=== PATIENT | male | born 1965 | race Hispanic/Latino ===

== ENCOUNTER → 2017-05-21 | Outpatient (CLI) | payer BC | END | disposition home or self-care (01) | LOC: RAH 12:32 | PROVIDERS: ATTEND Nurse Practitioner Family | DX: M89.9 Disorder of bone, unspecified (principal) | CPT/HCPCS: 78306; A9503 ==

== ENCOUNTER 2017-10-13 10:25 | Emergency (ER) | payer BC ==
[2017-10-13] MEDS ORDERED: METOCLOPRAMIDE 10 MG/2 ML VIAL ONE ×2 (11:25→11:48)
[2017-10-13] MEDS ORDERED: DiphenhydrAMINE HCL 50 MG/ML VIAL ONE (11:25)
[2017-10-13] MEDS ORDERED: METHYLPREDNISOLONE SOD SUCC 125MG/2ML VIAL ONE (11:26)
[2017-10-13] MEDS ORDERED: ONDANSETRON HCL 4 MG/2 ML VIAL ONE (11:26)
[2017-10-13] MEDS ORDERED: KETOROLAC TROMETHAMINE 15MG/ML ONE (11:26)
[2017-10-13] MEDS ORDERED: SODIUM CHLORIDE 0.9% 100 ML IV ONE (11:48)
[2017-10-13] MEDS ORDERED: MORPHINE SULFATE 4 MG/1ML SYG ONE (12:19)
== END 2017-10-13 14:49 | disposition home or self-care (01) ==
LOC: EDH 10:25
DX: G44.209 Tension-type headache, unspecified, not intractable (principal); R11.0 Nausea; E11.9 Type 2 diabetes mellitus without complications; I10 Essential (primary) hypertension; E78.5 Hyperlipidemia, unspecified
CPT/HCPCS: 70450; 96374; 96375 ×2; 99284; J1200; J1885; J2270; J2405; J2765 ×2; J2930

== ENCOUNTER 2021-12-25 23:01 | Emergency (ER) | payer BC, OTHER ==
[2021-12-25 23:06] VITALS: BP 113/66
[2021-12-26 00:29] LABS: BASOPHILS % (AUTO) 0.3 % (0.0-5.0); HEMATOCRIT 46.5 % (42-54); MEAN CORPUSCULAR VOLUME 88.4 fL (79-99); MONOCYTES % (AUTO) 7.5 % (3.0-13.0); NEUTROPHILS % (AUTO) 76.8 % (40.0-77.0); PLATELET COUNT (AUTO) 198 K/uL (130-400); RED BLOOD CELL COUNT(AUTO) 5.26 MIL/uL (4.50-6.20); RED CELL DISTRIBUTION WIDTH 11.9 % (11.0-15.5); WHITE BLOOD COUNT (AUTO) 9.5 K/uL (4.8-10.8)
[2021-12-26] MEDS ORDERED: 0.9%NACL 1000ML 1,000 ML IV ONE (00:30)
[2021-12-26] MEDS ORDERED: ONDANSETRON 4MG INJ IVP ONE (00:30)
[2021-12-26 00:37] LABS: POTASSIUM 5.3 mmol/L (3.5-5.1)
[2021-12-26] MEDS ORDERED: ACET-2079 PO (03:00)
[2021-12-26] MEDS ORDERED: DOXY-469 PO (03:00)
== END 2021-12-26 03:33 | disposition home or self-care (01) ==
LOC: EDH 23:01
DX: E86.9 Volume depletion, unspecified (principal); K08.89 Other specified disorders of teeth and supporting structures; E11.9 Type 2 diabetes mellitus without complications; E78.00 Pure hypercholesterolemia, unspecified; I10 Essential (primary) hypertension; Z20.822 Contact with and (suspected) exposure to COVID-19
CPT/HCPCS: 99283; 87635; 80048; 85025; 87880; 87804 ×2; 36415; 96374; 96361 ×2; C9803; J7030; J2405